=== PATIENT | male | born 1980 | race Caucasian/White ===

== ENCOUNTER 2016-10-05 20:49 | Emergency (ER) | payer OTHER ==
[2016-10-05] MEDS ORDERED: IBUPROFEN 400 MG TABLET PO STA (22:16)
[2016-10-05] MEDS ORDERED: CYCLOBENZAPRINE 10 MG TABLET PO STA (22:16)
[2016-10-05] MEDS ORDERED: LIDOCAINE PATCH 5% TOP STA (22:16)
[2016-10-05] MEDS ORDERED: IBUPROFEN 400 MG TABLET PO ONE (22:26)
[2016-10-05] MEDS ORDERED: CYCLOBENZAPRINE 10 MG TABLET PO ONE (22:26)
[2016-10-05] MEDS ORDERED: LIDOCAINE PATCH 5% TOP ONE (22:27)
[2016-10-05] MEDS ORDERED: AZITHROMYCIN 250 MG TABLET PO STA (22:58)
[2016-10-05] MEDS ORDERED: AZITHROMYCIN 250 MG TABLET PO ONE (23:01)
== END 2016-10-05 23:05 | disposition home or self-care (01) ==
DX: M43.6 Torticollis (principal); J02.0 Streptococcal pharyngitis; F17.200 Nicotine dependence, unspecified, uncomplicated
CPT/HCPCS: 87430; 99283; A9270

== ENCOUNTER 2021-06-12 10:44 | Outpatient (CLI) | payer OTHER ==
[2021-06-12 11:51] VITALS: BP 132/98
--- NOTE | 2021-06-12 11:51 | SLEEP CARE CONSULTATION ---
Information from patient questionnaire entered by Jabari Wheeler MA. I have reviewed and concur with the information entered by Jabari Wheeler MA. This document represents the service I personally performed and the decisions made by me, Shantell Dubon ARNP. History of Present Illness Service Date and Time: 06/12/2021 1044 Reason for Visit: New patient Chief Complaint: reports: Unrefreshed sleep, Snoring, Observed pauses in breathing (not often), Frequent awakenings at night Date of Onset: 17 years Usual bedtime: [id number] Time it takes to fall asleep: 15-20 minutes Snores at night: Yes Observed to quit breathing while asleep: No Sleeps alone due to snoring: Yes Number of times waking at night: 3-5 Reasons for waking at night: reports: Snoring, Other Toss, Turn, or Twitch while sleeping: Yes Recalls having dreams: Yes Usually gets out of bed at: [id number] Feels refreshed in the morning: No Morning headache: No Sleepy or fatigued during the day: Yes Ever fallen asleep while driving: No Takes day naps: No Dreams during day naps: No Prior sleep studies: No Additional HPI information: I had the pleasure of seeing HEAVEN US today regarding the possibility of him having a sleep disorder. His current complaints are unrefreshed sleep and snoring. His wants his loud snoring checked out. She has also mentioned that he has pauses in breathing when sleeping but not often. His is sleeping in another room due to the snoring right now. He states his loud snoring has been normal for the last 17 years. He states he does not feel rested in the mornings on average, but does not feel he is excessively tired during the day. He mason get tired in the afternoons. He denies morning headaches or drowsy driving. He has no major health issues. 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 Patient is and lives in [place]. Have you smoked in the past 12 months: Yes Cigarettes per day (20/pack): 10 (and vapes) Years of smokin Smoking Pack Years: 10.0 Alcohol use: Yes Alcohol amount and frequency: 4-10 x monthly Caffeine use: Yes Caffeine amount and frequency: 1 x daily Family History Family history of sleep disordered breathing: No Allergies and Home Medications Known drug allergies: Yes (pcn) Home medication list reviewed: Yes Allergy and home medication list: Flonase Cetirizine Celebrex Review of Systems Cardiovascular: denies: high blood pressure Gastrointestinal: denies: heartburn Neurological: denies: headaches Psychiatric: denies: anxiety, depression Ear/Nose/Throat: reports: wisdom teeth removed. denies: tonsillectomy Immunologic: reports: allergies to food or environment (cats) Physical Exam Vital signs obtained and entered by: Jean-Paul WHEELER CMA [facility] Blood Pressure: 132/98 (left, retake 132/100 right arm) Cuff size: wrist Heart Rate: 63 O2 Saturation: 97 (with mask) Height: 5 ft 10 in Weight: 259 lb (with boots and uniform) Body Mass Index: 37.1 BMI Classification: Obese Neck circumference: 18.5 (inches) Nostrils: patent to airflow Mouth and throat: narrow oropharynx Soft palate: long Hard palate: normal Uvula: normal Uvula visualization: 50% Mallampati Class II Tongue: enlarged in size with teeth walls on lateral edges Tonsils: 1+ Neck: normal w/o lymphadenopathy or thyromegaly Heart: regular rate and rhythm Lungs: clear bilaterally, wheeze (on left, cleared after patient instructed to cough) Impression and Plan 1. Suspected Obstructive Sleep Apnea-Hypopnea Syndrome, as suggested by a history of loud and irregular snoring, observed cessation of breath while asleep , frequent awakening during the night, and unrefreshed sleep. Narrow oropharynx and obesity are common predisposing factors for obstructive sleep apnea-hypopnea syndrome. I recommend proceeding to polysomnography to confirm the diagnosis and to assess severity. If the patient has significant sleep disordered breathing, a manual CPAP titration study will also be performed to find the optimal treatment pressure. I informed the patient of what the sleep studies involve and after some discussion, obtained agreement to proceed. The pathophysiology of obstructive sleep apnea-hypopnea syndrome was discussed with the patient and health risks of cardiovascular and cerebrovascular disease if not treated. Risks of drowsy driving discussed in detail and patient advised to avoid long distance driving and to sheeting puller at the first sign of drowsiness. Patient agreed to plan. * Schedule polysomnography +- manual CPAP titration study and return in 1-2 weeks after the study to discuss result and initiate therapy. * Avoid long distance driving or driving when feeling sleepy. * Avoid alcohol, sedative and muscle relaxant around bedtime. * Attempt to lose weight. * Review instructions provided by trained office staff on how to prepare for the sleep study. * Return for follow-up after sleep study completed. Counseling Topics: Weight loss health impact Visit Type: In Office Time Spent with Patient (minutes): 31 Provider Statement: I spent 100% of the Face to Face Visit with the patient with greater than 50% spent counseling the patient and coordination of care.
== END 2021-06-12 10:45 | disposition home or self-care (01) ==
LOC: SC 10:44
PROVIDERS: ATTEND Nurse Practitioner Family
DX: R06.83 Snoring (principal); G47.8 Other sleep disorders; E66.9 Obesity, unspecified; Z68.37 Body mass index [BMI] 37.0-37.9, adult
CPT/HCPCS: 99203; 99212

== ENCOUNTER 2021-07-01 09:19 | Outpatient (CLI) | payer OTHER | END 2021-07-01 09:20 | disposition home or self-care (01) | LOC: SC 09:19 | PROVIDERS: ATTEND Nurse Practitioner Family | DX: R06.83 Snoring (principal); R06.81 Apnea, not elsewhere classified; G47.8 Other sleep disorders; E66.9 Obesity, unspecified; Z68.37 Body mass index [BMI] 37.0-37.9, adult; F17.210 Nicotine dependence, cigarettes, uncomplicated; F17.290 Nicotine dependence, other tobacco product, uncomplicated | CPT/HCPCS: 95806 ==

== ENCOUNTER 2021-07-12 11:23 | Outpatient (CLI) | payer OTHER ==
--- NOTE | 2021-07-12 12:14 | SLEEP CARE CONSULTATION ---
Information from patient questionnaire entered by Jabari Pineda MA. I have reviewed and concur with the information entered by Jabari Pineda MA. This document represents the service I personally performed and the decisions made by Ling dominguez Caren J, ARNP. History of Present Illness Service Date and Time: 07/12/2021 1123 Initial [place] Sleepiness Scale score: 4 (2020) Current [place] Sleepiness Scale score: 4 (2021) Additional HPI information: HEAVEN US returns for follow up and results of the recently performed home sleep study. The patient was informed of the following findings: No significant sleep disordered breathing with an average AHI of 2.4 and milena oxygen saturation of 88%. I explained the pathophysiology behind obstructive sleep apnea. Patient does not have sleep apnea and was advised how weight gain could increase the risk of developing sleep apnea in the future. I strongly encouraged the patient to lose weight. Patient has moderate snoring. Snoring can be reduced by weight loss. Weight loss is best achieved with diet consult. Patient instructed to contact PCP for referral. Snoring can also be treated with an oral appliance from a dentist. Advised to check insurance coverage. In addition, an ENT evaluation can be do to see if other treatment is indicated. Patient counseled not drink alcohol less than 4 hours before bedtime as it can increase snoring and apnea. Patient was cautioned about risks of drowsy driving until sleepiness symptoms resolve. Sleep Study - Results Type of Sleep Study: Home sleep study Prior sleep studies: Yes Polysomnography/Home Sleep Study results: Physician Impression: The quality of the study is decent but it appears that the patient was awake a lot during the test.. The length of the study is adequate (> 240 minutes). Please also see the tabulated and graphic data. 1. No significant sleep disordered breathing, with an AHI of 2.4/hr and milena SaO2 of 88%. During the study, the patient had 3 apneas (3 obstructive, 0 central, 0 mixed) and 13 hypopneas. The longest episode lasted 89.0 seconds. The respiratory events occurred more frequently during supine sleep (supine AHI was 0.0 and non-supine, 3.04). 2. Hypoxemia (ICD-10 R09.02), minimal, with the lowest oxygen saturation of 88 % and 0.1 minutes with SaO2 under 90%. Baseline oxygen saturation was normal (Average oxygen saturation was 94%). Allergies and Home Medications Known drug allergies: Yes (PCN) Drug allergies reviewed: Yes Home medication list reviewed: Yes (no changes) Review of Systems Review of systems same as previous: No (tunnel release on left elbow, 2 weeks ago) Physical Exam Vital signs obtained and entered by: ISLVINA CABALLERO Blood Pressure: 131/74 (RIGHT, PULSE 63) Heart Rate: 78 O2 Saturation: 98 (WITH PAPER MASK) Height: 5 ft 10 in Weight: 255 lb (WITH UNIFORM AND BOOTS) Body Mass Index: 36.6 BMI Classification: Obese Impression and Plan 1. Suspected Obstructive Sleep Apnea-Hypopnea Syndrome, as suggested by a history of loud and irregular snoring, observed cessation of breath while asleep, frequent awakening during the night, unrefreshed sleep, and excessive daytime sleepiness. Patient's HST was "decent" quality according to medical scientific officer but it did not appear that he slept much during the night. Patient states he thinks he only slept about 1 hour that night due to all the stuff on him. I would like to repeat the study in the lab and have him sleep more to get a more accurate reading. I offered and he accepted a one time dose of zolpidem for the night of the study to help him sleep. Patient agreed to plan. * Schedule polysomnography * 5 mg Zolpidem for night of PSG * Avoid long distance driving or driving when feeling sleepy. * Avoid alcohol, sedative and muscle relaxant around bedtime. * Attempt to lose weight. * Review instructions provided by trained office staff on how to prepare for the sleep study. * Return for follow-up after sleep study completed. Counseling Topics: Weight loss health impact Visit Type: In Office Time Spent with Patient (minutes): 20 Provider Statement: I spent 100% of the Face to Face Visit with the patient with greater than 50% spent counseling the patient and coordination of care.
[2021-07-12 12:15] VITALS: BP 131/74
== END 2021-07-12 11:24 | disposition home or self-care (01) ==
LOC: SC 11:23
PROVIDERS: ATTEND Nurse Practitioner Family
DX: R06.83 Snoring (principal); G47.8 Other sleep disorders; R06.81 Apnea, not elsewhere classified; G47.10 Hypersomnia, unspecified; E66.9 Obesity, unspecified; Z68.36 Body mass index [BMI] 36.0-36.9, adult
CPT/HCPCS: 99212; 99213

== ENCOUNTER 2021-09-07 20:31 | Outpatient (CLI) | payer OTHER | END 2021-09-07 20:32 | disposition home or self-care (01) | LOC: SC 20:31 | PROVIDERS: ATTEND Nurse Practitioner Family | DX: G47.61 Periodic limb movement disorder (principal); R06.83 Snoring | CPT/HCPCS: 95810 ==

== ENCOUNTER 2021-09-20 13:02 | Outpatient (CLI) | payer OTHER ==
--- NOTE | 2021-09-20 13:10 | SLEEP CARE CONSULTATION ---
Information from patient questionnaire entered by Jabari Pineda MA. I have reviewed and concur with the information entered by Jabari Pineda MA. This document represents the service I personally performed and the decisions made by Ling dominguez Caren J, ARNP. History of Present Illness Service Date and Time: 09/20/2021 1300 Initial [place] Sleepiness Scale score: 4 (2020) Current [place] Sleepiness Scale score: 4 Additional HPI information: HEAVEN US returns via video telehealth visit for follow up and results of the recently performed polysomnography. The patient was informed of the following findings: No sleep disordered breathing with an average AHI of 1.3 and milena oxygen saturation of 91%. Patient did not sleep supine during this study. He was found to have moderate periodic leg movements of sleep. I explained the pathophysiology behind obstructive sleep apnea. Patient does not have sleep apnea and was advised how weight gain could increase the risk of developing sleep apnea in the future. I strongly encouraged the patient to lose weight. Patient has moderate to loud snoring. Snoring can be reduced by weight loss. Weight loss is best achieved with diet consult. Patient instructed to contact PCP for referral. Snoring can also be treated with an oral appliance from a dentist. Advised to check insurance coverage. In addition, an ENT evaluation can be do to see if other treatment is indicated. Patient counseled not drink alcohol less than 4 hours before bedtime as it can increase snoring and apnea. Patient was cautioned about risks of drowsy driving until sleepiness symptoms resolve. Patient denies drowsy driving. Sleep Study - Results Type of Sleep Study: Polysomnography (F/U POLY, 09/07/2021 [facility]) Prior sleep studies: Yes Polysomnography/Home Sleep Study results: IMPRESSION: The quality of the study is good. The patient had reduced sleep efficiency due to sleep onset insomnia and a prolonged awakening in the middle of the night. The sleep architecture was abnormal for sleep fragmentation and reduced amount of time spent in REM and slow wave sleep (N3). Respiratory monitoring showed no significant sleep disordered breathing (AHI = 1.3) or hypoxia (milena oxygen saturation of 91%). The patient did not sleep supine during this study (supine AHI = 0.0; non-supine = 1.31). Snore was moderate to loud in intensity. There was moderate periodic leg movement of sleep contributing to the sleep fragmentation. Cardiac rhythm was normal sinus rhythm without significant arrhythmia. No abnormal behavior (parasomnia) observed during the night. Allergies and Home Medications Home medication list reviewed: Yes (no changes) Allergy and home medication list: Allergies Penicillins Adverse Reaction (Verified 10/05/16 21:03) Unknown Review of Systems Review of systems same as previous: Yes (no changes) Physical Exam Vital signs obtained and entered by: Telehealth visit to reduce exposure during covid pandemic Height: 5 ft 10 in Impression and Plan 1. Snoring but no significant sleep disordered breathing. Patient patient did not sleep supine during the study so significant sleep disordered breathing on his back cannot be ruled out. Patient states that he never sleeps on his back. Patient advised that often weight loss will reduce snoring as well as apnea risk . An oral appliance can also be used for snoring. This would require a dental consultation. Patient cautioned not to use other online appliances as can cause bite issues. A list of accredited dentists [facility] and one local dentist who makes oral appliances is available in the office. Patient is advised to check if insurance will cover. An ENT consult can also be helpful to determine if any other treatment is an option. 2. Periodic limb movement, moderate, that did fragment patients sleep. Periodic limb movement of sleep (PLMS) is characterized by episodes of repetitive limb movements that occur during sleep and usually involve the lower limbs. The etiology is unknown but can be associated with restless leg syndrome (RLS), low serum ferritin level below 50 to 75mcg / L, neuropathy, spinal cord diseases, kidney disease, rheumatological disorders, narcolepsy, obstructive sleep apnea, and REM sleep behavior disorder. Caffeine can also aggravate PLMS and should be avoided. Sleep hygiene methods can also improve sleep as well as lifestyle changes such as regular exercise. Patient was advised that no treatment is needed at this time. If symptoms increase, then further evaluation is indicated. * Attempt to lose weight * Avoid alcohol consumption near bedtime * Return as needed for follow up. Counseling Topics: Weight loss health impact Visit Type: Telehealth Video Video Type: Doximity Patient Location: work Location of Provider: Office Patient agrees and consents to this telehealth visit type: Yes Patient agrees to have their insurance billed: Yes Time Spent with Patient (minutes): 10 Provider Statement: I spent 100% of the Telehealth Video Call with the patient with greater than 50% spent counseling the patient and coordination of care.
== END 2021-09-20 13:03 | disposition home or self-care (01) ==
LOC: SC 13:02
PROVIDERS: ATTEND Nurse Practitioner Family
DX: R06.83 Snoring (principal); G47.61 Periodic limb movement disorder